=== PATIENT | male | born 1980 | race Caucasian/White ===

== ENCOUNTER 2016-09-30 15:16 | Emergency (ER) | payer BC ==
[~2016-09-30] VITALS: Ht 185.4 cm; Wt 128.0 kg
[2016-09-30 15:21] VITALS: BP 199/90; PULSE 78; RESP 14; TEMP 97.6; O2SAT 98
[2016-09-30] MEDS ORDERED: TRAZ50TA12 PO (15:54)
[2016-09-30] MEDS ORDERED: LAMO25 PO (15:54)
[2016-09-30] MEDS ORDERED: NALT50TA3 PO (15:54)
[2016-09-30] MEDS ORDERED: SERT-129 PO (15:54)
--- NOTE | 2016-09-30 16:16 | PD ---
HPI Chief Complaint: Skin Problem Time Seen by Provider: 15:52 Travel History International Travel<30 days: No Contact w/Intl Traveler<30days: No Traveled to known affect area: No History of Present Illness HPI 36 year old male visiting from [place] presents with left inner thigh wound, swelling, and bruising. He was standing in a truck bed 7 days ago and fell out of the truck, hitting his left medial thigh on the trailer hitch during the fall. He denies any lacerations or abrasions to the leg. 5 days ago the left leg became very swollen and developed a "blister" on the medial thigh. He went to the ED in [place] where they used ultrasound to rule out DVT. He was discharged with Tramadol for pain. The blister has since enlarged and drained, turning into a wound. The wound is draining serosanguineous fluid. He has occasional nausea. He denies any fever, chills, purulent wound discharge, vomiting, diarrhea, and weakness. PFSH Past Medical History Anxiety: Yes Depression: Yes Tetanus Vaccination: > 5 Years Influenza Vaccination: No Past Surgical History Other Surgery: Yes (VEIN STRIPPING) Family History Family Hypercholesterolemia: Yes Social History Alcohol Use: No (FORMER) Tobacco Use: Yes (2 PPD) Substance Use: No Allergies-Medications (Allergen,Severity, Reaction): Coded Allergies: No Known Allergies (Unverified , 09/30/16) Reported Meds & Prescriptions Reported Meds & Active Scripts Active [place] (Hydrocodone-Acetaminophen) 5-325 mg Tab 1 Tab PO Q6H PRN Clindamycin (Clindamycin HCl) 150 Mg Cap 300 Mg PO Q6H 7 Days Reported Naltrexone (Naltrexone HCl) 50 Mg Tab 50 Mg PO DAILY Trazodone (Trazodone HCl) 50 Mg Tab 50 Mg PO HS Sertraline (Sertraline HCl) 100 Mg Tab 100 Mg PO DAILY Lamictal (Lamotrigine) 25 Mg Tab 50 Mg PO DAILY Review of Systems Except as stated in HPI: all other systems reviewed are Neg General / Constitutional: No: Fever, Chills HENT: No: Headaches Gastrointestinal: Positive: Nausea, No: Vomiting, Diarrhea, Abdominal Pain Musculoskeletal: Positive: Edema (left leg), Pain (left leg) Skin: Positive Other (Bruising on left thigh), No Rash Physical Exam Narrative GENERAL: Well developed, well nourished. Sitting comfortably. SKIN: Warm and dry. His significant sized hematoma approximately softball area in diameter on the left inner thigh distal third. There is significant surrounding cellulitis.. Difficult to the borders as there is subcutaneous ecchymosis limiting complete skin exam. The cellulitis does not appear to wrap around the thigh. Ecchymosis extends distally all the way down into the foot. There is some swelling in the anterior knee but no obvious knee effusion. In the center of the hematoma itself is a ulcerated area without drainage. HEAD: Atraumatic. Normocephalic. EYES: Pupils equal and round. No scleral icterus. No injection or drainage. ENT: No nasal bleeding or discharge. Mucous membranes pink and moist. NECK: Trachea midline. No JVD. CARDIOVASCULAR: Regular rate and rhythm. RESPIRATORY: No accessory muscle use. Clear to auscultation. Breath sounds equal bilaterally. GASTROINTESTINAL: Abdomen soft, non-tender, nondistended. Hepatic and splenic margins not palpable. MUSCULOSKELETAL: Extremities without clubbing, cyanosis. 2+ edema in left leg and foot. Solid nodule palpable around the wound. NEUROLOGICAL: Awake and alert. No obvious cranial nerve deficits. Motor grossly within normal limits. Five out of 5 muscle strength in the arms and legs. Normal speech. PSYCHIATRIC: Appropriate mood and affect; insight and judgment normal. Data Data Last Documented VS Vital Signs Date Time Temp Pulse Resp B/P Pulse Ox O2 Delivery O2 Flow Rate FiO2 09/30/16 19:11 70 18 163/81 97 09/30/16 16:38 Room Air 09/30/16 15:21 97.6 Orders Basic Metabolic Panel (Bmp) (09/30/16 16:20) Complete Blood Count With Diff (09/30/16 16:20) Iv Access Insert/Monitor (09/30/16 16:20) Ecg Monitoring (09/30/16 16:20) Oximetry (09/30/16 16:20) Sodium Chloride 0.9% Flush (Ns Flush) (09/30/16 16:30) Ed Poc Ultrasound (09/30/16 ) Us Leg Venous Doppler (09/30/16 16:20) Lidocai-Epi 1%-1:100,000 Inj (Xylocaine- (09/30/16 17:00) Clindamycin Inj (Cleocin Inj) (09/30/16 17:00) Wound Culture And Gram Stain (09/30/16 17:54) Morphine Inj (Morphine Inj) (09/30/16 18:00) Labs Laboratory Tests Test 09/30/16 16:25 White Blood Count 11.6 TH/MM3 Red Blood Count 4.55 MIL/MM3 Hemoglobin 14.8 GM/DL Hematocrit 44.2 % Mean Corpuscular Volume 97.0 FL Mean Corpuscular Hemoglobin 32.5 PG Mean Corpuscular Hemoglobin 33.5 % Concent Red Cell Distribution Width 13.6 % Platelet Count 239 TH/MM3 Mean Platelet Volume 8.1 FL Neutrophils (%) (Auto) 68.9 % Lymphocytes (%) (Auto) 19.0 % Monocytes (%) (Auto) 9.7 % Eosinophils (%) (Auto) 1.4 % Basophils (%) (Auto) 1.0 % Neutrophils # (Auto) 8.0 TH/MM3 Lymphocytes # (Auto) 2.2 TH/MM3 Monocytes # (Auto) 1.1 TH/MM3 Eosinophils # (Auto) 0.2 TH/MM3 Basophils # (Auto) 0.1 TH/MM3 CBC Comment AUTO DIFF Differential Comment AUTO DIFF CONFIRMED Sodium Level 140 MEQ/L Potassium Level 3.6 MEQ/L Chloride Level 105 MEQ/L Carbon Dioxide Level 28.6 MEQ/L Anion Gap 6 MEQ/L Blood Urea Nitrogen 10 MG/DL Creatinine 0.86 MG/DL Estimat Glomerular Filtration 101 ML/MIN Rate Random Glucose 85 MG/DL Calcium Level 8.2 MG/DL MDM Medical Decision Making Medical Screen Exam Complete: Yes Emergency Medical Condition: Yes Differential Diagnosis DVT, sepsis, subcutaneous hematoma, hematoma of the leg with infection. Narrative Course Patient roomed in emergency department, he was given clindamycin 900 mg IV on arrival. Patient is afebrile and his vital signs do not show Sirs criteria, white blood cell count is 11.6 with a normal differential. This excludes sepsis as a diagnosis. Clinically on physical exam the patient has an infected hematoma of the left inner thigh, Michelle Estrada my PA has drained the patient' s hematoma with my assistance. The patient's wound was irrigated copiously with normal saline. He will be discharged on clindamycin. His plan is to return to [place] in the near future and I recommended that he follow-up with his primary care physician expeditiously. I explained to him that while at this time there is no indication for hospitalization hematomas often when infected do need hospitalization. He does deserve a trial of outpatient antibiotic therapy which I think is appropriate at this time. Discussed signs symptoms that should prompt emergent return to the ER. On pain management the patient is on naltrexone at home to overt him from alcohol. After lengthy discussion with him with his in the room discussed Percocet prescription which may not control his pain given that he is on the naltrexone, he does have a prescription for tramadol. Recommended Tylenol as needed. Diagnosis Primary Impression: Traumatic hematoma of left lower leg with infection Patient Instructions: Abscess (ED), General Instructions, Narcotic given in the ED Additional Instructions: Recommend return to the emergency department in 48 hours for a wound check. If you would like me to check your wound please return to the main [place] location ([facility]). Saturday at 5 PM. Med/Other Pt SpecificInfo: Prescription(s) given Scripts Hydrocodone-Acetaminophen ([place])5-325 mg Tab1 Tab PO Q6H PRN (PAIN) #15 TAB Ref 0 Prov:Anton Flores MD 09/30/16 Clindamycin 150 Mg [id number] Mg PO Q6H 7 Days Ref 0 Prov:Anton Flores MD 09/30/16 Disposition: 01 DISCHARGE HOME Condition: Stable Anton Flores MD Sep 30, 2016 16:15
[2016-09-30] MEDS ORDERED: SODIUM CHLORIDE 0.9% FLUSH 10 ML FLUSH IV FLUSH PRN (16:30)
[2016-09-30 16:38] VITALS: O2SAT 97
[2016-09-30 16:43] LABS: BASOPHIL # 0.1 TH/MM3 (0-0.2); EOSINOPHIL # 0.2 TH/MM3 (0-0.4); EOSINOPHIL % 1.4 % (0.0-4.0); HEMATOCRIT 44.2 % (39.0-51.0); LYMPHOCYTE # 2.2 TH/MM3 (1.0-4.8); MEAN CORPUSCULAR HEMOGLOBIN 32.5 PG (27.0-34.0); MEAN CORPUSCULAR HGB CONC 33.5 % (32.0-36.0); MONO % 9.7 % (0.0-8.0); NEUT % 68.9 % (16.0-70.0); PLATELET COUNT 239 TH/MM3 (150-450); RED BLOOD COUNT 4.55 MIL/MM3 (4.50-5.90); RED CELL DISTRIBUTION WIDTH 13.6 % (11.6-17.2); WHITE BLOOD COUNT 11.6 TH/MM3 (4.0-11.0)
[2016-09-30 16:53] LABS: POTASSIUM 3.6 MEQ/L (3.5-5.1)
[2016-09-30 16:55] LABS: HEMO FLAGS AUTO DIFF
[2016-09-30 16:56] LABS: BICARBONATE 28.6 MEQ/L (21.0-32.0)
[2016-09-30] MEDS ORDERED: CLINDAMYCIN INJ 900 MG in SODIUM CHLORIDE 0.9% INJ 100 ML IV ONE (17:00)
[2016-09-30] MEDS ORDERED: LIDOCAINE 1%/EPINEPHrine 1:100,000 SOLN 20 ML VIAL INFIL ONE (17:00)
--- NOTE | 2016-09-30 17:08 | RADRPT ---
EXAM DATE/TIME: 09/30/2016 16:43 [facility] COMPARISON: No previous studies available for comparison. INDICATIONS : Left leg swelling. MEDICAL HISTORY : Depression. Anxiety. SURGICAL HISTORY : Vein stripping. Bilateral knee replacement. ENCOUNTER: Initial ACUITY: 4 - 6 days PAIN SCORE: 6/10 LOCATION: Left leg. TECHNIQUE: Venous ultrasound of the leg was performed from the inguinal ligament to the proximal calf. Real-brian e, color Doppler and spectral tracing, compression and augmentation techniques were used. FINDINGS: There is normal compressibility of the deep venous system from the inguinal region to the proximal ca lf. No echogenic clot is seen in the lumen of the common femoral, femoral, popliteal, and posterior tibial veins. There is a normal response of the venous system to proximal and distal augmentation an d respiration. In the left leg medially along the mid thigh is a hypoechoic area measuring 66 x 54 x 23 mm. No color-flow or shadowing. CONCLUSION: 1. No deep venous thrombosis left leg. 2. Hypoechoic area in the region of concern could be hematoma. Leonidas Capone MD on September 30, 2016 at 17:05 Board Certified Radiologist. This report was verified electronically.
[2016-09-30 17:11] LABS: SCAN/DIFF AUTO DIFF CONFIRMED
[2016-09-30] MEDS ORDERED: CLIN1CAP5 PO (17:43)
[2016-09-30] MEDS ORDERED: MORPHINE SULFATE 8 MG/ML INJ IV PUSH ONE (18:00)
[2016-09-30] MEDS ORDERED: NORC5TAB PO (18:41)
[2016-09-30 19:11] VITALS: BP 163/81
--- NOTE | 2016-09-30 19:24 | PD ---
Physical Exam Time Seen by Provider: 18:30 Narrative I was asked by Dr. Flores to evacuate a hematoma on this patient. Please see his note for further details. Data Data Last Documented VS Vital Signs Date Time Temp Pulse Resp B/P Pulse Ox O2 Delivery O2 Flow Rate FiO2 09/30/16 19:11 70 18 163/81 97 09/30/16 16:38 Room Air 09/30/16 15:21 97.6 Orders Basic Metabolic Panel (Bmp) (09/30/16 16:20) Complete Blood Count With Diff (09/30/16 16:20) Iv Access Insert/Monitor (09/30/16 16:20) Ecg Monitoring (09/30/16 16:20) Oximetry (09/30/16 16:20) Sodium Chloride 0.9% Flush (Ns Flush) (09/30/16 16:30) Ed Poc Ultrasound (09/30/16 ) Us Leg Venous Doppler (09/30/16 16:20) Lidocai-Epi 1%-1:100,000 Inj (Xylocaine- (09/30/16 17:00) Clindamycin Inj (Cleocin Inj) (09/30/16 17:00) Wound Culture And Gram Stain (09/30/16 17:54) Morphine Inj (Morphine Inj) (09/30/16 18:00) Wound Culture And Gram Stain (09/30/16 18:40) Labs Laboratory Tests Test 09/30/16 16:25 White Blood Count 11.6 TH/MM3 Red Blood Count 4.55 MIL/MM3 Hemoglobin 14.8 GM/DL Hematocrit 44.2 % Mean Corpuscular Volume 97.0 FL Mean Corpuscular Hemoglobin 32.5 PG Mean Corpuscular Hemoglobin 33.5 % Concent Red Cell Distribution Width 13.6 % Platelet Count 239 TH/MM3 Mean Platelet Volume 8.1 FL Neutrophils (%) (Auto) 68.9 % Lymphocytes (%) (Auto) 19.0 % Monocytes (%) (Auto) 9.7 % Eosinophils (%) (Auto) 1.4 % Basophils (%) (Auto) 1.0 % Neutrophils # (Auto) 8.0 TH/MM3 Lymphocytes # (Auto) 2.2 TH/MM3 Monocytes # (Auto) 1.1 TH/MM3 Eosinophils # (Auto) 0.2 TH/MM3 Basophils # (Auto) 0.1 TH/MM3 CBC Comment AUTO DIFF Differential Comment AUTO DIFF CONFIRMED Sodium Level 140 MEQ/L Potassium Level 3.6 MEQ/L Chloride Level 105 MEQ/L Carbon Dioxide Level 28.6 MEQ/L Anion Gap 6 MEQ/L Blood Urea Nitrogen 10 MG/DL Creatinine 0.86 MG/DL Estimat Glomerular Filtration 101 ML/MIN Rate Random Glucose 85 MG/DL Calcium Level 8.2 MG/DL [facility] Medical Record Reviewed: Yes Supervised Visit with FERN: Yes Procedures Procedure Narrative INCISION AND DRAINAGE OF HEMATOMA: The area was prepped with Betadine. A subcutaneous wheal of 1% lidocaine with a total number 5 mL was used to anesthetize the area properly. A number 11 scalpel was used to make a 1 cm incision across the hematoma. The hematoma was drained, complex loculations were broken down, and irrigated with normal saline. Cultures were obtained. Sterile dressing applied. Diagnosis Primary Impression: Traumatic hematoma of left lower leg with infection Referrals: Primary Care Physician 1 day Patient Instructions: General Instructions, Narcotic given in the ED, Abscess ( ED), Hematoma (ED) Departure Forms: Work Release, Enter return to work date: Oct 03, 2016 Tests/Procedures Additional Instruction: Recommend return to the emergency department in 48 hours for a wound check. If you would like me to check your wound please return to the main [place] location ([facility]). Saturday at 5 PM. Scripts Hydrocodone-Acetaminophen ([place])5-325 mg Tab1 Tab PO Q6H PRN (PAIN) #15 TAB Ref 0 Prov:Anton Flores MD 09/30/16 Clindamycin 150 Mg [id number] Mg PO Q6H 7 Days Ref 0 Prov:Anton Flores MD 09/30/16 Disposition: 01 DISCHARGE HOME Condition: Stable Michelle Estrada Sep 30, 2016 19:24
== END 2016-09-30 19:12 | disposition home or self-care (01) ==
LOC: PHED 15:16
DX: S70.12XA Contusion of left thigh, initial encounter (principal); L03.116 Cellulitis of left lower limb; B95.1 Streptococcus, group B, as the cause of diseases classified elsewhere; R11.0 Nausea; F17.200 Nicotine dependence, unspecified, uncomplicated; Z86.59 Personal history of other mental and behavioral disorders; W22.09XA Striking against other stationary object, initial encounter
CPT/HCPCS: 10060; 80048; 85025; 86403; 87070; 93971; 96365; 96375; 99285; J2270; 87205